=== PATIENT | female | born 1950 | race Caucasian/White ===

== ENCOUNTER → 2017-01-09 | Outpatient (CLI) | payer BC, MEDICARE ==
--- NOTE | 2017-01-09 09:04 | REPMRS ---
Patient History The patient states she had a clinical breast exam in Patient is postmenopausal. No known family history of cancer. Digital Woman Screen Mammo: January 09, 2017 - Exam #: [id number] Bilateral CC and MLO view(s) were taken. Technologist: Bren Carson, Technologist Prior study comparison: January 04, 2015, right breast diagnostic unilateral mammo, performed at [facility]. 2014, digital bilateral screening mammo, performed at [facility]. January 26, 2009, bilateral screening mammogram performed at [facility]. FINDINGS: There are scattered fibroglandular densities. There is a moderate amount of residual fibroglandular tissue which is fairly symmetric. There is no interval development of dominant mass, architectural distortion, or clustered microcalcification typical of malignancy. There has been no change in the appearance of the mammogram from the prior studies. ASSESSMENT: BI-RADS/ACR category 1 mammogram. Negative. Recommendation Routine screening mammogram of both breasts in 1 year (for women over age 40). This mammogram was interpreted with the aid of an FDA-approved computer-aided dectection system. Electronically Signed By: Gregg Rutledge MD 01/09/17 0904
--- NOTE | 2017-01-12 09:22 | DEXA ---
AP SPINE L1 - L4 0.918 -2.2 -0.6 LT FEMUR TOTAL 0.794 -1.7 -0.3 RT FEMUR TOTAL 0.831 -1.4 0.0 TOTAL BODY TOTAL OTHER DUAL FEMUR FRAX* ASSESSMENT Risk factors: History of adult fracture. 10 year probability of fracture Major osteoporotic fracture 20.7 % Hip fracture 4.3 % COMMENTS: There is low bone density of the spine and hips. The density of the spine has decreased 8.6% since the initial exam on 05/2006. The spine density has decreased 4.6% since the most recent exam on 01/2009. The density of the left hip has decreased 12.2% since the initial exam on 2005. The density of the left hip has decreased 6.6% since the most recent exam on 2008. The density of the right hip has decreased 12.2% since the initial exam on 2005. The density of the right hip has decreased 1.7% since the most recent exam on 2008. FOLLOW-UP: Recommendation for the next bone density exam: 2 years. DALY
== END ==
LOC: M WHC 07:51
PROVIDERS: ATTEND Physician Assistant Medical
DX: Z12.31 Encounter for screening mammogram for malignant neoplasm of breast (principal); Z78.0 Asymptomatic menopausal state
CPT/HCPCS: 77080; G0202

== ENCOUNTER → 2017-01-26 | Outpatient (CLI) | payer BC, MEDICARE ==
[2017-01-26 20:24] LABS: BASO % 0.9 % (0.0-1.0); EOS # 0.1 K/mm3 (0.0-0.50); LARGE UNSTAINED CELL # 0.1 K/mm3 (0.0-0.4); LARGE UNSTAINED CELL % 5.4 % (0.0-4.0); LYMPH # 1.1 K/mm3 (1.5-4.5); LYMPH % 47.7 % (24.0-44.0); MEAN CORPUSCULAR HEMOGLOBIN 30.2 pg (27.0-33.0); MEAN CORPUSCULAR HGB CONC 33.1 g/dl (32.0-36.5); MEAN CORPUSCULAR VOLUME 91.2 fl (80.0-96.0); MONO # 0.4 K/mm3 (0.0-0.8); NEUTROPHILS # 0.6 K/mm3 (1.8-7.7); NEUTROPHILS % 24.9 % (36.0-66.0); PLATELET COUNT, AUTOMATED 353 k/mm3 (150-450); RED CELL DISTRIBUTION WIDTH 13.2 % (11.5-14.5); WHITE BLOOD COUNT 2.3 K/mm3 (4.0-10.0)
[2017-01-26 20:29] LABS: ALBUMIN 3.6 GM/DL (3.2-5.2); ALBUMIN/GLOBULIN RATIO 1.13 (1.00-1.93); ALKALINE PHOSPHATASE 67 U/L (45-117); ALT/SGPT 13 U/L (12-78); ANION GAP 9 MEQ/L (8-16); AST/SGOT 20 U/L (15-37); BILIRUBIN,TOTAL 0.3 MG/DL (0.2-1.0); BLOOD UREA NITROGEN 11 MG/DL (7-18); CALCIUM LEVEL 8.6 MG/DL (8.8-10.2); CARBON DIOXIDE LEVEL 28 MEQ/L (21-32); CHLORIDE LEVEL 102 MEQ/L (98-107); CREATININE FOR GFR 0.73 MG/DL (0.55-1.02); GLOMERULAR FILTRATION RATE > 60.0 (>45); GLUCOSE, FASTING 90 MG/DL (80-110); POTASSIUM SERUM 3.8 MEQ/L (3.5-5.1); SODIUM LEVEL 139 MEQ/L (136-145); TOTAL PROTEIN 6.8 GM/DL (6.4-8.2)
== END ==
LOC: M ADAMS 15:20
PROVIDERS: ATTEND Internal Medicine Medical Oncology
DX: D70.9 Neutropenia, unspecified (principal)

== ENCOUNTER → 2017-02-23 | Outpatient (REF) | payer BC, MEDICARE ==
[2017-02-23 14:02] LABS: DIFF SLIDE NUMBER 243; MEAN CORPUSCULAR HEMOGLOBIN 30.7 pg (27.0-33.0); MEAN CORPUSCULAR HGB CONC 33.3 g/dl (32.0-36.5); MEAN CORPUSCULAR VOLUME 92.2 fl (80.0-96.0); PLATELET COUNT, AUTOMATED 294 k/mm3 (150-450); RED CELL DISTRIBUTION WIDTH 13.4 % (11.5-14.5); WHITE BLOOD COUNT 2.1 K/mm3 (4.0-10.0)
[2017-02-23 14:47] LABS: BASOPHILS 1 % (0-4); EOSINOPHILS 2 % (0-5)
== END ==
LOC: M LAB REF 12:36
PROVIDERS: ATTEND Internal Medicine Medical Oncology
DX: D70.9 Neutropenia, unspecified (principal)

== ENCOUNTER → 2017-03-26 | Outpatient (REF) | payer BC, MEDICARE | LOC: M LAB REF 13:17 | PROVIDERS: ATTEND Internal Medicine Medical Oncology | DX: D70.9 Neutropenia, unspecified (principal) ==

== ENCOUNTER → 2017-06-25 | Outpatient (REF) | payer BC, MEDICARE ==
[2017-06-25 14:01] LABS: REASON FOR REVIEW COMPREHENSIVE REVIEW
== END ==
LOC: M LAB REF 13:12
PROVIDERS: ATTEND Internal Medicine Medical Oncology
DX: D70.9 Neutropenia, unspecified (principal)

== ENCOUNTER → 2017-09-11 | Outpatient (REF) | LOC: M LAB 09:02 | PROVIDERS: ATTEND Nurse Practitioner Adult Health | DX: Z00.00 Encounter for general adult medical examination without abnormal findings (principal) ==

== ENCOUNTER → 2017-10-29 | Outpatient (REF) | payer MEDICARE ==
[2017-10-29 14:32] LABS: REASON FOR REVIEW COMPREHENSIVE REVIEW
== END ==
LOC: M LAB REF 13:46
PROVIDERS: ATTEND Internal Medicine Medical Oncology
DX: D70.9 Neutropenia, unspecified (principal)

== ENCOUNTER → 2017-12-10 | Outpatient (REF) | payer MEDICARE ==
[2017-12-10 20:19] LABS: HEMATOCRIT 34.6 % (36.0-47.0); HEMOGLOBIN 11.7 g/dl (12.0-16.0); MEAN CORPUSCULAR HEMOGLOBIN 30.9 pg (27.0-33.0); MEAN CORPUSCULAR HGB CONC 33.8 g/dl (32.0-36.5); MEAN CORPUSCULAR VOLUME 91.3 fl (80.0-96.0); PLATELET COUNT, AUTOMATED 284 10^3/uL (150-450); RED BLOOD COUNT 3.79 10^6/uL (4.00-5.40); RED CELL DISTRIBUTION WIDTH 11.9 % (11.5-14.5); WHITE BLOOD COUNT 2.6 10^3/uL (4.0-10.0)
[2017-12-10 20:49] LABS: ADD MANUAL DIFFER YES; DIFF SLIDE NUMBER 266; POSITIVE DIFF POS FLAG
[2017-12-10 20:58] LABS: ATYPICAL LYMPH 3 % (0-5); BASOPHILS 1 % (0-4); EOSINOPHILS 2 % (0-5); LYMPHOCYTES 64 % (16-52); MONOCYTES 17 % (0-8); NEUTROPHILS 13 % (35-75)
[2017-12-10 20:59] LABS: PLATELET ESTIMATE NORMAL (NORMAL)
[2017-12-10 21:14] LABS: ALBUMIN 3.8 GM/DL (3.2-5.2); ALBUMIN/GLOBULIN RATIO 1.06 (1.00-1.93); ALKALINE PHOSPHATASE 63 U/L (45-117); ALT/SGPT 17 U/L (12-78); ANION GAP 7 MEQ/L (8-16); AST/SGOT 17 U/L (7-37); BILIRUBIN,TOTAL 0.3 MG/DL (0.2-1.0); BLOOD UREA NITROGEN 15 MG/DL (7-18); CALCIUM LEVEL 9.3 MG/DL (8.8-10.2); CARBON DIOXIDE LEVEL 30 MEQ/L (21-32); CHLORIDE LEVEL 103 MEQ/L (98-107); CHOLESTEROL LEVEL 161 MG/DL (<200); CHOLESTEROL RISK RATIO 2.146 (<5); GLOMERULAR FILTRATION RATE > 60.0 (>45); GLUCOSE, FASTING 83 MG/DL (80-110); HDL CHOLESTEROL 75 MG/DL (>40); LDL CHOLESTEROL 65.4 MG/DL (<100); NON-HDL-C 86 MG/DL; POTASSIUM SERUM 4.8 MEQ/L (3.5-5.1); SODIUM LEVEL 140 MEQ/L (136-145); TOTAL PROTEIN 7.4 GM/DL (6.4-8.2); TRIGLYCERIDES LEVEL 103 MG/DL (<150)
[2017-12-10 21:15] LABS: TOTAL 25(OH) VITAMIN D 31.4 NG/ML (30.0-100.0)
== END ==
LOC: M SFHCADAM 13:37
DX: Z00.00 Encounter for general adult medical examination without abnormal findings (principal); D72.819 Decreased white blood cell count, unspecified; M85.88 Other specified disorders of bone density and structure, other site; H72.93 Unspecified perforation of tympanic membrane, bilateral; H65.93 Unspecified nonsuppurative otitis media, bilateral; Z79.899 Other long term (current) drug therapy
CPT/HCPCS: 84443

== ENCOUNTER → 2018-01-20 | Outpatient (CLI) | payer MEDICARE | LOC: M WHC 08:23 | DX: Z12.31 Encounter for screening mammogram for malignant neoplasm of breast (principal); Z78.0 Asymptomatic menopausal state | CPT/HCPCS: 77067 ==

== ENCOUNTER → 2018-03-22 | Outpatient (REF) | payer MEDICARE ==
[2018-03-22 13:29] LABS: SLIDE REVIEW Report; SOURCE PERIPHERAL SMEAR
[2018-03-22 14:01] LABS: VITAMIN B12 LEVEL 416 PG/ML (247-911)
[2018-03-22 14:37] LABS: FERRITIN 63 NG/ML (8-252); IRON (FE) 39 UG/DL (50-170); PERCENT SATURATION 13.4 % (13.2-45.0); TOTAL IRON BINDING CAPACITY 291 UG/DL (250-450)
[2018-03-23 08:06] LABS: ERYTHROPOIETIN 11.4 mIU/mL (2.6-18.5)
== END ==
LOC: M LAB REF 12:47
DX: D70.8 Other neutropenia (principal); D64.9 Anemia, unspecified
CPT/HCPCS: 83550

== ENCOUNTER → 2018-06-12 | Outpatient (REF) | payer MEDICARE | LOC: M LAB REF 09:35 | DX: J02.9 Acute pharyngitis, unspecified (principal) | CPT/HCPCS: 87081 ==

== ENCOUNTER → 2018-08-05 | Outpatient (REF) | payer MEDICARE ==
[2018-08-05 13:51] LABS: REASON FOR REVIEW WBC/LEUKEMIA/BLAST; SLIDE REVIEW Report; SOURCE PERIPHERAL SMEAR
== END ==
LOC: M LAB REF 13:31
DX: D70.9 Neutropenia, unspecified (principal); D64.9 Anemia, unspecified

== ENCOUNTER 2019-06-15 06:30 | Emergency (ER) | payer MEDICARE ==
[~2019-06-15] VITALS: Ht 162.6 cm; Wt 61.4 kg
[2019-06-15] MEDS ORDERED: NS 1,000 ML IV ONE (07:00)
[2019-06-15] MEDS ORDERED: ONDANSETRON 4MG/2ML VIAL (J2405) IV ONE (07:00)
[2019-06-15 07:29] LABS: BASO % 0.9 % (0.0-1.0); EOS % 0.7 % (0.0-3.0); HEMATOCRIT 34.7 % (36.0-47.0); HEMOGLOBIN 11.4 g/dl (12.0-15.5); LYMPH # 0.6 10^3/uL (1.5-4.5); LYMPH % 13.1 % (24.0-44.0); MEAN CORPUSCULAR HGB CONC 32.9 g/dl (32.0-36.5); MEAN CORPUSCULAR VOLUME 94.3 fl (80.0-96.0); MONO # 0.8 10^3/uL (0.0-0.8); MONO % 17.2 % (0.0-5.0); NEUTROPHILS % 67.6 % (36.0-66.0); PLATELET COUNT, AUTOMATED 347 10^3/uL (150-450); RED BLOOD COUNT 3.68 10^6/uL (4.00-5.40); WHITE BLOOD COUNT 4.4 10^3/uL (4.0-10.0)
[2019-06-15 08:02] LABS: BLOOD UREA NITROGEN 11 MG/DL (7-18); CALCIUM LEVEL 9.1 MG/DL (8.8-10.2); CARBON DIOXIDE LEVEL 27 MEQ/L (21-32); CHLORIDE LEVEL 108 MEQ/L (98-107); GLOMERULAR FILTRATION RATE > 60.0 (>39); GLUCOSE, FASTING 118 MG/DL (70-100); POTASSIUM SERUM 3.9 MEQ/L (3.5-5.1); SODIUM LEVEL 142 MEQ/L (136-145)
[2019-06-15 08:03] LABS: ALBUMIN 3.7 GM/DL (3.2-5.2); ALT/SGPT 15 U/L (12-78); BILIRUBIN,DIRECT 0.1 MG/DL (0.0-0.2); BILIRUBIN,TOTAL 0.4 MG/DL (0.2-1.0); TOTAL PROTEIN 7.4 GM/DL (6.4-8.2)
[2019-06-15 08:06] LABS: LIPASE 148 U/L (73-393)
[2019-06-15] MEDS ORDERED: KETOROLAC 30 MG/ML VIAL (J1885) IV ONE (08:15)
[2019-06-15] MEDS ORDERED: METOCLOPRAMIDE INJ 10MG/2ML VIAL (J2765) IV ONE (08:15)
--- NOTE | 2019-06-15 08:53 | REPVR ---
EXAM: CT Abdomen and Pelvis Without Contrast EXAM DATE/TIME: 06/15/19 (7:00am) CLINICAL HISTORY: 68 year old female with right flank / RLQ pain. Possible kidney stone. Possible appendicitis. TECHNIQUE: Imaging protocol: Axial computed tomography images of the abdomen and pelvis without contrast. Coronal and sagittal reformatted images were created and reviewed. Radiation optimization: All CT scans at this facility use at least one of these dose optimization techniques: automated exposure control; mA and/or kV adjustment per patient size (includes targeted exams where dose is matched to clinical indication); or iterative reconstruction. COMPARISON: CT ABDOMEN PELVIS of 09/08/14 FINDINGS: Liver: Normal. No solid mass. Gallbladder and bile ducts: Mildly distended gallbladder. No calcified stones. No ductal dilatation. Pancreas: Normal. No ductal dilatation. Spleen: Normal. No splenomegaly. Adrenals: Normal. No mass. Kidneys and ureters: Moderate right hydroureteronephrosis. The right kidney appears enlarged and inflamed. Small stone (2 mm size)distally on the right side (perhaps in the intramural portion of the distal right ureter; perhaps recently passed into the urinary bladder). The small stone is just right of midline, at the posterior margin of the urinary bladder. Stomach and bowel: Normal. No bowel obstruction. No mucosal thickening. Appendix: No evidence of appendicitis. Intraperitoneal space: Normal. No free air. No significant fluid collection. Vasculature: Normal. No abdominal aortic aneurysm. Lymph nodes: Normal. No enlarged lymph nodes. Bladder: Unremarkable as visualized. Reproductive: Unremarkable as visualized. Bones/joints: No acute fracture nor dislocation. Soft tissues: Unremarkable. IMPRESSION: Moderate right hydroureteronephrosis. Small stone (2 mm size) distally on the right side (perhaps in the intramural portion of the distal right ureter; perhaps recently passed into the urinary bladder). The small stone is just right of midline, at the posterior margin of the urinary bladder. No evidence of acute appendicitis. Electronically signed by: Ai Worthington On 06/15/2019 08:53:32 AM
[2019-06-15] MEDS ORDERED: KETO10TAB PO (09:49)
[2019-06-15] MEDS ORDERED: FLOM0.4C39 PO (09:49)
[2019-06-15] MEDS ORDERED: ONDA4TAB6 PO (09:50)
[2019-06-15 10:08] VITALS: BP 113/89
== END 2019-06-15 10:11 | disposition home or self-care (01) ==
LOC: M ED 06:30
DX: N21.1 Calculus in urethra (principal); N13.30 Unspecified hydronephrosis; R10.31 Right lower quadrant pain; R11.2 Nausea with vomiting, unspecified; Z87.442 Personal history of urinary calculi; K59.2 Neurogenic bowel, not elsewhere classified; Z88.2 Allergy status to sulfonamides
CPT/HCPCS: 74176; 80048; 80076; 81001; 83690; 85025; 96374; 96375; 99284; J1885; J2405; J2765

== ENCOUNTER → 2019-07-07 | Outpatient (REF) | payer MEDICARE ==
[~2019-07-07] MED LIST: FLOM0.4C39 PO; KETO10TAB PO; ONDA4TAB6 PO
[2019-07-07 20:15] LABS: CHOLESTEROL RISK RATIO 2.049 (<5)
== END ==
LOC: M SFHCADAM 11:14
PROVIDERS: ATTEND Physician Assistant Medical
DX: Z13.220 Encounter for screening for lipoid disorders (principal)
CPT/HCPCS: 80061; G0463

== ENCOUNTER → 2019-12-13 | Outpatient (REF) | LOC: M LAB 09:36 | PROVIDERS: ATTEND Nurse Practitioner Adult Health | DX: Z02.1 Encounter for pre-employment examination (principal) ==

== ENCOUNTER → 2020-01-11 | Outpatient (CLI) | payer MEDICARE ==
--- NOTE | 2020-01-11 09:54 | REPMRS ---
Patient History The patient states she had a clinical breast exam in June 2019. No known family history of cancer. Digital Woman Screen Mammo: January 11, 2020 - Exam #: [id number] Bilateral CC and MLO view(s) were taken. Technologist: Laila Chase Technologist Prior study comparison: January 20, 2018, digital woman screen mammo performed at [facility]. January 09, 2017, digital woman screen mammo performed at [facility]. January 26, 2009, bilateral screening mammogram performed at [facility]. FINDINGS: The breast tissue is heterogeneously dense. This may lower the sensitivity of mammography. There is a moderate amount of heterogeneously dense fibroglandular tissue which is fairly symmetric. There is no interval development of dominant mass, architectural distortion, or grouped microcalcification typical of malignancy. There has been no change in the appearance of the mammogram from the prior studies. 3-D tomosynthesis shows no additional findings. Assessment: BI-RADS/ACR category 1 mammogram. Negative Mammogram. Recommendation Routine screening mammogram of both breasts in 1 year (for women over age 40). This patient's Lifetime Breast Cancer RIsk is estimated at 4.8 %. This mammogram was interpreted with the aid of an FDA-approved computer-aided dectection system. Electronically Signed By: Gregg Rutledge MD 01/11/20 0953
== END ==
LOC: M WHC 08:16
PROVIDERS: ATTEND Physician Assistant Medical
DX: M85.88 Other specified disorders of bone density and structure, other site (principal); Z12.31 Encounter for screening mammogram for malignant neoplasm of breast

== ENCOUNTER 2020-02-12 19:32 | Emergency (ER) | payer MEDICARE ==
[~2020-02-12] VITALS: Ht 162.6 cm; Wt 63.6 kg
[2020-02-12 19:33] VITALS: BP 134/88
[2020-02-12] MEDS ORDERED: ALEN70TA74 (19:38)
[2020-02-12] MEDS ORDERED: AMOX500C PO (20:21)
[2020-02-12 20:37] LABS: INFLUENZA A AMPLIFICATION NEGATIVE (NEGATIVE); INFLUENZA B AMPLIFICATION NEGATIVE (NEGATIVE)
== END 2020-02-12 20:34 | disposition home or self-care (01) ==
LOC: M ED 19:32
DX: J02.0 Streptococcal pharyngitis (principal); Z87.442 Personal history of urinary calculi; Z88.2 Allergy status to sulfonamides

== ENCOUNTER → 2020-11-06 | Outpatient (CLI) | payer SELFPAY ==
[~2020-11-06] MED LIST changes: +ALEN70TA74; +AMOX500C PO
== END ==
LOC: M LABSMTC 12:58
PROVIDERS: ATTEND Pediatrics
DX: Z11.59 Encounter for screening for other viral diseases (principal)

== ENCOUNTER → 2020-11-21 | Outpatient (CLI) | payer SELFPAY | LOC: M LABSMTC 10:02 | PROVIDERS: ATTEND Pediatrics | DX: Z20.828 Contact with and (suspected) exposure to other viral communicable diseases (principal) ==

== ENCOUNTER → 2020-12-06 | Outpatient (CLI) | payer SELFPAY | LOC: M LABSMTC 11:02 | PROVIDERS: ATTEND Pediatrics | DX: Z20.822 Contact with and (suspected) exposure to COVID-19 (principal) ==

== ENCOUNTER → 2021-06-06 | Outpatient (REF) | payer MEDICARE ==
[~2021-06-06] MED LIST changes: -ALEN70TA74; +ALEN70TA82
[2021-06-06 18:09] LABS: BASO % 0.7 % (0.0-1.0); EOS # 0.1 10^3/uL (0.0-0.5); EOS % 1.9 % (0.0-3.0); HEMATOCRIT 36.5 % (36.0-47.0); HEMOGLOBIN 11.9 g/dl (12.0-15.5); LYMPH % 36.4 % (24.0-44.0); MEAN CORPUSCULAR HEMOGLOBIN 30.6 pg (27.0-33.0); MEAN CORPUSCULAR HGB CONC 32.6 g/dl (32.0-36.5); MEAN CORPUSCULAR VOLUME 93.8 fl (80.0-96.0); MONO # 0.8 10^3/uL (0.0-0.8); MONO % 30.9 % (2.0-8.0); NEUTROPHILS % 30.1 % (36.0-66.0); PLATELET COUNT, AUTOMATED 281 10^3/uL (150-450); RED BLOOD COUNT 3.89 10^6/uL (4.00-5.40); WHITE BLOOD COUNT 2.7 10^3/uL (4.0-10.0)
[2021-06-06 18:41] LABS: ALBUMIN 3.8 GM/DL (3.2-5.2); ALT/SGPT 21 U/L (12-78); BILIRUBIN,TOTAL 0.4 MG/DL (0.2-1.0); BLOOD UREA NITROGEN 14 MG/DL (7-18); CALCIUM LEVEL 9.3 MG/DL (8.8-10.2); CARBON DIOXIDE LEVEL 30 MEQ/L (21-32); CHLORIDE LEVEL 103 MEQ/L (98-107); CHOLESTEROL LEVEL 171 MG/DL (<200); CHOLESTEROL RISK RATIO 2.375 (<5); GLOMERULAR FILTRATION RATE > 60.0 (>39); GLUCOSE, FASTING 80 MG/DL (70-100); HDL CHOLESTEROL 72 MG/DL (>40); LDL CHOLESTEROL 76 MG/DL (<100); NON-HDL-C 99 MG/DL; POTASSIUM SERUM 4.7 MEQ/L (3.5-5.1); SODIUM LEVEL 140 MEQ/L (136-145); TOTAL 25(OH) VITAMIN D 29.4 NG/ML (30.0-100.0); TOTAL PROTEIN 7.2 GM/DL (6.4-8.2); TRIGLYCERIDES LEVEL 113 MG/DL (<150)
[2021-06-06 19:57] LABS: NEUTROPHILS # 0.8 10^3/uL (1.5-8.5)
== END ==
LOC: M SFHCADAM 11:40
PROVIDERS: ATTEND Physician Assistant Medical
DX: D70.9 Neutropenia, unspecified (principal); M81.0 Age-related osteoporosis without current pathological fracture; Z79.899 Other long term (current) drug therapy

== ENCOUNTER → 2021-07-11 | Outpatient (CLI) | payer MEDICARE ==
--- NOTE | 2021-07-11 08:50 | REPMRS ---
Patient History The patient states she had a clinical breast exam in May 2021. No known family history of cancer. 10 lb unintentional weight gain. Moderna vaccine 01/02/21 right arm. 01/30/21 left arm. Patient states no breast complaints today. Patient has signed MRS History Sheet. Digital Woman Screen Mammo: July 11, 2021 - Exam #: [id number] Bilateral CC and MLO view(s) were taken. Technologist: RT Elian Prior study comparison: January 11, 2020, bilateral digital woman screen mammo performed at [facility]. January 20, 2018, digital woman screen mammo performed at [facility]. January 09, 2017, digital woman screen mammo performed at [facility]. FINDINGS: There are scattered fibroglandular densities. The Volpara volumetric breast density category is:B. There has been no change in the appearance of the mammogram from the prior studies. There is a mild amount of scattered fibroglandular density which is fairly symmetric. There is no interval development of dominant mass, architectural distortion, or grouped microcalcification suggestive of malignancy. 3-D tomosynthesis shows no additional findings. Assessment: BI-RADS/ACR category 1 mammogram. Negative Mammogram. Recommendation Routine screening mammogram of both breasts in 1 year (for women over age 40). This patient's [facility] Lifetime Breast Cancer Risk is estimated at 4.5 %. This mammogram was interpreted with the aid of an FDA-approved computer-aided dectection system. Electronically Signed By: Gregg Rutledge MD 07/11/21 0849
== END ==
LOC: M WHC 08:00
PROVIDERS: ATTEND Physician Assistant Medical
DX: Z12.31 Encounter for screening mammogram for malignant neoplasm of breast (principal)